=== PATIENT | female | born 1945 | race African-American/Black ===

== ENCOUNTER 2021-03-02 15:59 | Inpatient (IN) | payer MEDICARE ==
[2021-03-02] MEDS ORDERED: Nitroglycerin 2% Ointment 1 INCH/1 GM Packet ONE (16:39)
[2021-03-02] MEDS ORDERED: Nitroglycerin 0.4 MG TAB (25 Tab Bottle) SL PRN (19:25)
[2021-03-02 19:47] VITALS: BMI 28.5
[2021-03-02 20:26] LABS: Troponin I 2.289 ng/mL (< 0.028)
[2021-03-02] MEDS: Metoprolol Tartrate 25 MG TAB PO SCH (21:33)
[2021-03-02 23:22] LABS: Troponin I 2.114 ng/mL (< 0.028)
[2021-03-03] MEDS: Nitroglycerin 2% Ointment 1 INCH/1 GM Packet TOP SCH ×3 (05:05→19:11)
[2021-03-03] MEDS ORDERED: Communication Order-Pharmacy FS SCH (08:45)
[2021-03-03] MEDS ORDERED: Enoxaparin Sodium 40 MG/0.4 ML SYRINGE SC SCH ×2 (09:00)
[2021-03-03] MEDS: Metoprolol Tartrate 25 MG TAB PO SCH (09:03)
[2021-03-03] MEDS: Aspirin Chewable 81 MG TAB PO SCH (09:03)
[2021-03-03 09:33] LABS: ALT (SGPT) 16 U/L (8-55); AST (SGOT) 17 U/L (5-34); Albumin 3.7 g/dL (3.4-4.8); Alkaline Phosphatase 62 U/L (40-110); Anion Gap 11 mmol/L (10-20); BUN (Urea Nitrogen) 17 mg/dL (9.8-20.1); Bilirubin, Total 0.5 mg/dL (0.2-1.2); Calc. Creatinine Clearance 65 mL/min (70-130); Calcium 9.3 mg/dL (7.8-10.44); Carbon Dioxide 27 mmol/L (23-31); Chloride 105 mmol/L (98-107); Globulin 3.5 g/dL (2.4-3.5); Glucose 209 mg/dL (83-110); Potassium 4.1 mmol/L (3.5-5.1); Protein, Total 7.2 g/dL (5.8-8.1); Sodium 139 mmol/L (136-145)
[2021-03-03 09:35] LABS: #Eosinphils 0.1 10x3/uL (0.0-0.5); #Monocytes 0.6 10x3/uL (0.0-1.1); #Neutrophils 2.9 10x3/uL (1.5-8.4); %Basophils 0.3 % (0.0-2.0); %Lymphocytes 41.6 % (18.0-47.0); %Monocytes 9.8 % (0.0-10.0); Hemoglobin 12.4 g/dL (12.0-15.5); Mean Corpuscular HGB CONC 31.2 g/dL (32.0-36.0); Mean Corpuscular Hemoglobin 26.7 pg (27.0-33.0); Mean Corpuscular Volume 85.4 fl (81.6-98.3); Mean Platelet Volume 10.2 fl (7.4-10.4); Platelet Count 245 10x3/uL (150-450); RBC Distribution Width 13.4 % (11.5-14.5); Red Blood Cell (RBC) Count 4.65 10x6/uL (3.90-5.03); White Blood Cell (WBC) Count 6.1 10x3/uL (3.5-10.5)
[2021-03-03 09:38] LABS: Prothrombin Time 11.4 sec (9.5-12.1)
[2021-03-03] MEDS ORDERED: Lidocaine 1% PF 5 ML VIAL ONE (10:27)
[2021-03-03] MEDS ORDERED: Nitroglycerin 50 MG/250 ML BOT 250 ML ONE (10:27)
[2021-03-03] MEDS ORDERED: Verapamil 5 MG/2 ML VIAL ONE (10:28)
[2021-03-03] MEDS ORDERED: Heparin 10,000 UNITS/ 10 ML VIAL ONE ×2 (10:28→11:44)
[2021-03-03] MEDS ORDERED: Midazolam HCl 2 mg/2 ml Vial ONE (10:29)
[2021-03-03] MEDS ORDERED: Sodium Chloride 0.9% 1,000 ML ONE (10:29)
[2021-03-03] MEDS ORDERED: Bivalirudin 250 MG VIAL ONE (10:29)
[2021-03-03] MEDS ORDERED: Fentanyl 100 MCG/2 ML VIAL ONE (10:29)
[2021-03-03] MEDS ORDERED: Adenosine 6 MG/2 ML VIAL ONE (10:29)
[2021-03-03] MEDS ORDERED: TICAGRELOR 90 MG TABLET ONE (11:43)
[2021-03-03] MEDS ORDERED: Acetaminophen/Codeine 30-300mg Tablet PO PRN ×2 (12:14)
[2021-03-03] MEDS ORDERED: Sodium Chloride 0.9% 200 ML IV PRN (12:14)
[2021-03-03] MEDS ORDERED: Nitroglycerin 0.4 MG TAB (25 Tab Bottle) SL PRN (12:14)
[2021-03-03] MEDS ORDERED: Lisinopril 5 MG TAB PO SCH (12:45)
[2021-03-03] MEDS ORDERED: Ondansetron PF 4 MG/2 ML Vial IVP PRN (15:36)
[2021-03-03] MEDS ORDERED: Acetaminophen 325 MG TAB PO PRN (15:46)
[2021-03-03] MEDS: Carvedilol 3.125 MG TAB PO SCH (17:04)
[2021-03-03 17:05] LABS: SARS-CoV-2 PCR by NAA Not Detected (NotDetected)
[2021-03-03] MEDS: TICAGRELOR 90 MG TABLET PO SCH (20:28)
[2021-03-03] MEDS ORDERED: Atorvastatin Calcium 40 MG TAB PO SCH (21:00)
[2021-03-04] MEDS: Nitroglycerin 2% Ointment 1 INCH/1 GM Packet TOP SCH ×3 (02:31→11:21)
[2021-03-04 04:46] LABS: #Eosinphils 0.2 10x3/uL (0.0-0.5); #Monocytes 0.7 10x3/uL (0.0-1.1); #Neutrophils 2.9 10x3/uL (1.5-8.4); %Basophils 0.6 % (0.0-2.0); %Eosinophils 2.7 % (0.0-6.0); %Lymphocytes 38.7 % (18.0-47.0); %Monocytes 11.3 % (0.0-10.0); %Neutrophils 46.4 % (40.0-75.0); Hemoglobin 11.6 g/dL (12.0-15.5); Mean Corpuscular Hemoglobin 27.4 pg (27.0-33.0); Mean Corpuscular Volume 85.6 fl (81.6-98.3); Mean Platelet Volume 10.1 fl (7.4-10.4); Platelet Count 212 10x3/uL (150-450); RBC Distribution Width 13.3 % (11.5-14.5); Red Blood Cell (RBC) Count 4.24 10x6/uL (3.90-5.03); White Blood Cell (WBC) Count 6.3 10x3/uL (3.5-10.5)
[2021-03-04 05:03] LABS: Cardiac Risk 5.2 (Less than 4.5)
[2021-03-04 05:19] LABS: Anion Gap 13 mmol/L (10-20); BUN (Urea Nitrogen) 16 mg/dL (9.8-20.1); Calc. Creatinine Clearance 76 mL/min (70-130); Calcium 8.8 mg/dL (7.8-10.44); Carbon Dioxide 24 mmol/L (23-31); Chloride 104 mmol/L (98-107); Glucose 169 mg/dL (83-110); Potassium 3.8 mmol/L (3.5-5.1); Sodium 137 mmol/L (136-145)
[2021-03-04] MEDS: Aspirin Chewable 81 MG TAB PO SCH (08:39)
[2021-03-04] MEDS: Carvedilol 3.125 MG TAB PO SCH (08:39)
[2021-03-04] MEDS: TICAGRELOR 90 MG TABLET PO SCH (08:40)
[2021-03-04] MEDS ORDERED: Lisinopril 5 MG TAB PO SCH (09:00)
[2021-03-04 12:53] VITALS: BP 123/90; TEMP 98.5
== END 2021-03-04 14:00 | disposition home or self-care (01) | DRG 247 ==
LOC: CSHERS 15:59 → CSHTELE 16:53
PROVIDERS: ADMIT Internal Medicine; ATTEND Internal Medicine
PROC: 4A023N7 Measurement of Cardiac Sampling and Pressure, Left Heart, Percutaneous Approach (ICD-10-PCS; principal; 2021-03-03)
PROC: 027136Z Dilation of Coronary Artery, Two Arteries with Three Drug-eluting Intraluminal Devices, Percutaneous Approach (ICD-10-PCS; 2021-03-03)
PROC: B2111ZZ Fluoroscopy of Multiple Coronary Arteries using Low Osmolar Contrast (ICD-10-PCS; 2021-03-03)
PROC: B2161ZZ Fluoroscopy of Right and Left Heart using Low Osmolar Contrast (ICD-10-PCS; 2021-03-03)
DX: I21.4 Non-ST elevation (NSTEMI) myocardial infarction (principal); Z20.822 Contact with and (suspected) exposure to COVID-19; I10 Essential (primary) hypertension; Z79.84 Long term (current) use of oral hypoglycemic drugs; Z79.82 Long term (current) use of aspirin; Z79.899 Other long term (current) drug therapy; Z90.710 Acquired absence of both cervix and uterus; I25.110 Atherosclerotic heart disease of native coronary artery with unstable angina pectoris
CPT/HCPCS: 36415; 36416; 80048; 80053; 80061; 85025; 85347; 85610; 87635; 92928; 93005; 93010; 93306; 93458; 94760; 99152; 99153; 99285; C1887; C9600; J0153; J0583; J1644; J2250; J2405; J3010; J7050; U0003; U0005

== ENCOUNTER 2021-09-03 09:47 | Outpatient (CLI) | payer MEDICARE | END 2021-09-03 09:48 | disposition home or self-care (01) | LOC: CSHMAMMO 09:47 | PROVIDERS: ATTEND Family Medicine | DX: Z12.31 Encounter for screening mammogram for malignant neoplasm of breast (principal) | CPT/HCPCS: 77063; 77067 ==

== ENCOUNTER 2022-01-21 10:43 | Outpatient (CLI) | payer MEDICARE ==
[2022-01-21 11:38] LABS: Estimated GFR-MDRD - POC Greater than 90
[2022-01-21] MEDS ORDERED: Magnevist 469MG/ML 20 ML VIAL ONE (13:11)
== END 2022-01-21 10:44 | disposition home or self-care (01) ==
LOC: CSHMRI 10:43
PROVIDERS: ATTEND Family Medicine
DX: R42 Dizziness and giddiness (principal); R29.898 Other symptoms and signs involving the musculoskeletal system; Z98.61 Coronary angioplasty status; W19.XXXD Unspecified fall, subsequent encounter
CPT/HCPCS: 70553; 82565; A9579

== ENCOUNTER 2022-03-30 10:03 | Outpatient (CLI) | payer MEDICARE | END 2022-03-30 10:04 | disposition home or self-care (01) | LOC: CSHMAMMO 10:03 | PROVIDERS: ATTEND Family Medicine | DX: Z13.820 Encounter for screening for osteoporosis (principal); Z78.0 Asymptomatic menopausal state; M85.851 Other specified disorders of bone density and structure, right thigh | CPT/HCPCS: 77080 ==

== ENCOUNTER 2022-07-14 13:22 | Outpatient (CLI) | payer MEDICARE | END 2022-07-14 13:23 | disposition home or self-care (01) | LOC: CSHULT 13:22 | PROVIDERS: ATTEND Otolaryngology Otolaryngic Allergy | DX: E04.1 Nontoxic single thyroid nodule (principal); E04.2 Nontoxic multinodular goiter | CPT/HCPCS: 76536 ==

== ENCOUNTER 2023-02-15 12:31 | Emergency (ER) | payer MEDICARE ==
[2023-02-15 13:12] LABS: #Eosinphils 0.1 10x3/uL (0.0-0.5); #Monocytes 0.6 10x3/uL (0.0-1.1); #Neutrophils 2.2 10x3/uL (1.5-8.4); %Basophils 0.4 % (0.0-2.0); %Eosinophils 2.7 % (0.0-6.0); %Lymphocytes 43.9 % (18.0-47.0); %Monocytes 10.7 % (0.0-10.0); %Neutrophils 41.9 % (40.0-75.0); Hemoglobin 12.5 g/dL (12.0-15.5); Mean Corpuscular HGB CONC 31.3 g/dL (32.0-36.0); Mean Corpuscular Hemoglobin 27.7 pg (27.0-33.0); Mean Corpuscular Volume 88.7 fl (81.6-98.3); Mean Platelet Volume 10.3 fl (7.4-10.4); Platelet Count 220 10x3/uL (150-450); RBC Distribution Width 13.3 % (11.5-14.5); Red Blood Cell (RBC) Count 4.51 10x6/uL (3.90-5.03); White Blood Cell (WBC) Count 5.2 10x3/uL (3.5-10.5)
[2023-02-15] MEDS ORDERED: Aspirin Chewable 81 MG TAB ONE (13:29)
[2023-02-15] MEDS ORDERED: Ondansetron ODT 4 MG TAB ONE (13:29)
[2023-02-15 13:31] LABS: ALT (SGPT) 16 U/L (8-55); AST (SGOT) 15 U/L (5-34); Alkaline Phosphatase 85 U/L (40-110); Anion Gap 15 mmol/L (10-20); BUN (Urea Nitrogen) 17 mg/dL (9.8-20.1); Bilirubin, Total 0.6 mg/dL (0.2-1.2); Calc. Creatinine Clearance 0 mL/min (70-130); Calcium 9.5 mg/dL (7.8-10.44); Carbon Dioxide 23 mmol/L (23-31); Chloride 104 mmol/L (98-107); Estimated GFR 52; Globulin 3.3 g/dL (2.4-3.5); Glucose 181 mg/dL (83-110); Lipase 39 U/L (8-78); Potassium 4.3 mmol/L (3.5-5.1); Protein, Total 7.3 g/dL (5.8-8.1); Sodium 138 mmol/L (136-145)
== END 2023-02-15 17:01 | disposition home or self-care (01) ==
LOC: CSHERS 12:31
DX: R07.9 Chest pain, unspecified (principal); I10 Essential (primary) hypertension; E11.9 Type 2 diabetes mellitus without complications; I25.10 Atherosclerotic heart disease of native coronary artery without angina pectoris; E78.00 Pure hypercholesterolemia, unspecified
CPT/HCPCS: 36415; 71045; 80053; 83690; 84484; 85025; 93005; Q0162

== ENCOUNTER 2023-06-12 15:01 | Outpatient (CLI) | payer MEDICARE | END 2023-06-12 15:02 | disposition home or self-care (01) | LOC: CSHMAMMO 15:01 | PROVIDERS: ATTEND Family Medicine | DX: Z12.31 Encounter for screening mammogram for malignant neoplasm of breast (principal) | CPT/HCPCS: 77063; 77067 ==

== ENCOUNTER 2024-04-04 12:40 | Outpatient (CLI) | payer MEDICARE | END 2024-04-04 12:41 | disposition home or self-care (01) | LOC: CSHMAMMO 12:40 | PROVIDERS: ATTEND Family Medicine | DX: Z13.820 Encounter for screening for osteoporosis (principal); M85.851 Other specified disorders of bone density and structure, right thigh; M85.852 Other specified disorders of bone density and structure, left thigh; Z78.0 Asymptomatic menopausal state | CPT/HCPCS: 77080 ==

== ENCOUNTER 2024-08-21 10:12 | Outpatient (CLI) | payer MEDICARE | END 2024-08-21 10:13 | disposition home or self-care (01) | LOC: CSHMAMMO 10:12 | PROVIDERS: ATTEND Family Medicine | DX: Z12.31 Encounter for screening mammogram for malignant neoplasm of breast (principal) | CPT/HCPCS: 77063; 77067 ==